=== PATIENT | female | born 1945 | race Caucasian/White ===

== ENCOUNTER 2024-06-27 11:53 | Inpatient (IN) | payer MEDICARE, OTHER ==
[~2024-06-27 11:53] MED LIST: Iopamidol 300 61% 100 ML VIAL FS ONE
[2024-06-27 12:28] LABS: #Basophils Less than 0.03 10x3/uL (0.0-0.2); #Eosinophils Less than 0.03 10x3/uL (0.0-0.5); #Neutrophils 16.84 10x3/uL (1.5-8.4); %Basophils 0.1 % (0.0-2.0); %Eosinophils 0.1 % (0.0-6.0); %Lymphocytes 7.1 % (18.0-47.0); %Monocytes 4.2 % (0.0-10.0); %Neutrophils 88.1 % (40.0-75.0); Hematocrit 30.6 % (34.9-44.5); Hemoglobin 10.1 g/dL (12.0-15.5); Mean Corpuscular Hemoglobin 28.5 pg (27.0-33.0); Mean Corpuscular Volume 86.2 fL (81.6-98.3); Platelet Count 445 10x3/uL (150-450); RBC Distribution Width 13.2 % (11.5-14.5); Red Blood Cell (RBC) Count 3.55 10x6/uL (3.90-5.03); White Blood Cell (WBC) Count 19.11 10x3/uL (3.5-10.5)
[2024-06-27 12:39] LABS: ALT (SGPT) 14 U/L (Less than 34); AST (SGOT) 25 U/L (11-34); Alkaline Phosphatase 78 U/L (40-110); Anion Gap 20 mmol/L (10-20); BUN (Urea Nitrogen) 37 mg/dL (9.8-20.1); Bilirubin, Total 0.3 mg/dL (0.3-1.2); Calc. Creatinine Clearance 0 mL/min (70-130); Carbon Dioxide 23 mmol/L (23-31); Chloride 97 mmol/L (98-107); Estimated GFR 43; Globulin 4.4 g/dL (2.4-3.5); Glucose 164 mg/dL (83-110); Potassium 3.6 mmol/L (3.5-5.1); Protein, Total 7.4 g/dL (5.8-8.1); Sodium 136 mmol/L (136-145)
[2024-06-27 12:40] LABS: Acetaminophen Less than 10 mcg/mL (Less than 10); Alcohol Less than 10.0 mg/dL (Less than 10); Lipase 56 U/L (8-78); Salicylate Less than 8.0 mg/dL (Less than 8.0)
[2024-06-27] MEDS ORDERED: Ondansetron PF 4 MG/2 ML Vial ONE (12:41)
[2024-06-27 12:43] LABS: Troponin I 0.049 ng/mL (< 0.028)
[2024-06-27 13:07] LABS: Bilirubin Neg (Negative); Blood, Urine Negative (Negative); Clarity Clear (Clear); Glucose, Urine (Dipstick) Normal (Negative); Ketone, Urine Negative (Negative); Leukocyte Negative (Negative); Nitrite Negative (Negative); Protein, Urine (Dipstick) 100 mg/dl (Neg-Trace); Urobilinogen Normal mg/dL (Less than 2)
[2024-06-27 13:09] LABS: Bacteria/HPF Rare-Few HPF (None Seen); CAUTI Indications for Culture Alt mental st,lethar; RBC/HPF None Seen HPF (0-3); Squamous Epithelial 0-3 HPF (0-3); Transitional Epithelial 0-3 HPF (None Seen); WBC/HPF 0-3 HPF (0-3)
[2024-06-27 13:10] LABS: Urine Culture Reflex No No
[2024-06-27 14:04] LABS: ALV-art Gradient 211.895 mmHg (0-20); Actual Bicarbonate (HCO3a) 25.8 mEq/L (22-28); Analyzer IN Cardio CS ER; Base Excess (BEa) 3.3 mEq/L (-2.0 to +3.0); CO2 Tension 31.7 mmHg (35.0-45.0); Carboxyhemoglobin (COHb) 0.2 gm% (0.0-3.0); Hematocrit-ABG 29 % (36.0-47.0); O2 Tension (PaO2), arterial 62.2 mmHg (> 70.0); Potassium - ABG Lab 3.08 mmol/L (3.70-5.30); Puncture Site Right Brachial art; pH, Arterial 7.528 (7.35-7.45)
[2024-06-27] MEDS ORDERED: Azithromycin 500 MG VIAL ONE (14:08)
[2024-06-27] MEDS ORDERED: cefTRIAXone (ROCEPHIN) 1 GM VIAL ONE (14:08)
[2024-06-27] MEDS ORDERED: Ondansetron PF 4 MG/2 ML Vial IVP PRN (16:48)
[2024-06-27 17:24] VITALS: BMI 21.2
[2024-06-27 18:19] LABS: Hemoglobin 9.2 g/dL (12.0-15.5)
[2024-06-27] MEDS: Sodium Chloride 0.9% 1,000 ML IV SCH (18:31)
[2024-06-27 18:45] LABS: Troponin I 0.068 ng/mL (< 0.028)
[2024-06-27] MEDS: Ampicillin/Sulbactam 3 GM in Sodium Chloride 0.9% 100 ML IVPB SCH (20:50)
[2024-06-27] MEDS: Pantoprazole 40 MG VIAL IVP SCH (20:51)
[2024-06-28 04:45] LABS: #Basophils Less than 0.03 10x3/uL (0.0-0.2); #Eosinophils 0.04 10x3/uL (0.0-0.5); #Monocytes 0.77 10x3/uL (0.0-1.1); #Neutrophils 13.19 10x3/uL (1.5-8.4); %Basophils 0.1 % (0.0-2.0); %Eosinophils 0.2 % (0.0-6.0); %Lymphocytes 13.7 % (18.0-47.0); %Monocytes 4.7 % (0.0-10.0); %Neutrophils 80.9 % (40.0-75.0); Hematocrit 25.8 % (34.9-44.5); Hemoglobin 8.3 g/dL (12.0-15.5); Mean Corpuscular HGB CONC 32.2 g/dL (32.0-36.0); Mean Corpuscular Hemoglobin 28.3 pg (27.0-33.0); Mean Corpuscular Volume 88.1 fL (81.6-98.3); Mean Platelet Volume 10.2 fL (7.4-10.4); Platelet Count 392 10x3/uL (150-450); RBC Distribution Width 13.3 % (11.5-14.5); Red Blood Cell (RBC) Count 2.93 10x6/uL (3.90-5.03); White Blood Cell (WBC) Count 16.32 10x3/uL (3.5-10.5)
[2024-06-28 05:12] LABS: Anion Gap 15 mmol/L (10-20); BUN (Urea Nitrogen) 19 mg/dL (9.8-20.1); Calc. Creatinine Clearance 36 mL/min (70-130); Calcium 8.5 mg/dL (7.8-10.44); Carbon Dioxide 25 mmol/L (23-31); Chloride 104 mmol/L (98-107); Estimated GFR 60; Glucose 95 mg/dL (83-110); Potassium 2.7 mmol/L (3.5-5.1); Sodium 141 mmol/L (136-145)
[2024-06-28 05:27] LABS: Critical Call Chem Troponin I NUR.MB21@0526; Troponin I 0.208 ng/mL (< 0.028)
[2024-06-28] MEDS ORDERED: Enoxaparin 60 MG (0.6 mL) SYRINGE SC SCH (05:45)
[2024-06-28] MEDS: Potassium Chloride 20 MEQ in Premix 1 BAG IVPB SCH (05:59)
[2024-06-28] MEDS: Aspirin 300 MG Suppository PR SCH (06:15)
[2024-06-28 06:20] LABS: Magnesium 1.8 mg/dL (1.6-2.6)
[2024-06-28 06:21] LABS: Prothrombin Time 10.8 sec (9.5-12.1)
[2024-06-28 06:25] LABS: PTT 20.6 sec (22.0-33.0)
[2024-06-28] MEDS: Aspirin Chewable 81 MG TAB PO SCH (06:41)
[2024-06-28 10:29] LABS: Hematocrit 28.3 % (34.9-44.5); Hemoglobin 8.9 g/dL (12.0-15.5)
[2024-06-28 10:40] LABS: Potassium 3.7 mmol/L (3.5-5.1)
[2024-06-28 13:07] VITALS: BMI 21.2
[2024-06-28 13:52] LABS: Hemoglobin A1c 6.1 % (4.0-6.0)
[2024-06-28] MEDS: cefTRIAXone\\ROCEPHIN 1 GM in Sodium Chloride 0.9% 100 ML IVPB SCH (14:28)
[2024-06-28] MEDS: Magnesium 2 GM/50 ML(in water) 2 GM in Premix 1 BAG IVPB SCH (14:44)
[2024-06-28 15:02] LABS: Troponin I 0.108 ng/mL (< 0.028)
[2024-06-28] MEDS: Azithromycin 500 MG in Sodium Chloride 0.9% 250 ML 250 ML IVPB SCH (15:54)
[2024-06-28 18:14] LABS: Troponin I 0.087 ng/mL (< 0.028)
[2024-06-29] MEDS: hydrALAZINE 20 MG/ML VIAL SLOW IVP PRN (04:46)
[2024-06-29 05:10] LABS: MDiff Complete? YES; Platelet Adequacy Comment Appears Adequate; RBC Morphology Within Normal Limits
[2024-06-29 05:21] LABS: #Basophils 0.04 10x3/uL (0.0-0.2); #Eosinophils 0.12 10x3/uL (0.0-0.5); #Monocytes 0.66 10x3/uL (0.0-1.1); #Neutrophils 8.69 10x3/uL (1.5-8.4); %Basophils 0.3 % (0.0-2.0); %Lymphocytes 17.4 % (18.0-47.0); %Monocytes 5.7 % (0.0-10.0); %Neutrophils 74.5 % (40.0-75.0); Hematocrit 29.3 % (34.9-44.5); Hemoglobin 9.9 g/dL (12.0-15.5); Mean Corpuscular HGB CONC 33.8 g/dL (32.0-36.0); Mean Corpuscular Hemoglobin 29.6 pg (27.0-33.0); Mean Corpuscular Volume 87.7 fL (81.6-98.3); Mean Platelet Volume 10.4 fL (7.4-10.4); Platelet Count 394 10x3/uL (150-450); RBC Distribution Width 13.3 % (11.5-14.5); Red Blood Cell (RBC) Count 3.34 10x6/uL (3.90-5.03); White Blood Cell (WBC) Count 11.67 10x3/uL (3.5-10.5)
[2024-06-29 05:42] LABS: Anion Gap 21 mmol/L (10-20); BUN (Urea Nitrogen) 14 mg/dL (9.8-20.1); Calc. Creatinine Clearance 37 mL/min (70-130); Calcium 9.7 mg/dL (7.8-10.44); Carbon Dioxide 16 mmol/L (23-31); Chloride 107 mmol/L (98-107); Estimated GFR 63; Glucose 72 mg/dL (83-110); Magnesium 2.5 mg/dL (1.6-2.6); Phosphorus 2.8 mg/dL (2.5-4.5); Potassium 4.7 mmol/L (3.5-5.1); Sodium 139 mmol/L (136-145)
[2024-06-30 05:18] LABS: #Basophils Less than 0.03 10x3/uL (0.0-0.2); #Eosinophils 0.07 10x3/uL (0.0-0.5); #Monocytes 0.66 10x3/uL (0.0-1.1); #Neutrophils 7.16 10x3/uL (1.5-8.4); %Basophils 0.2 % (0.0-2.0); %Eosinophils 0.7 % (0.0-6.0); %Monocytes 6.9 % (0.0-10.0); %Neutrophils 74.7 % (40.0-75.0); Hemoglobin 9.2 g/dL (12.0-15.5); Mean Corpuscular HGB CONC 32.9 g/dL (32.0-36.0); Mean Corpuscular Hemoglobin 28.8 pg (27.0-33.0); Mean Corpuscular Volume 87.8 fL (81.6-98.3); Mean Platelet Volume 9.8 fL (7.4-10.4); Platelet Count 524 10x3/uL (150-450); RBC Distribution Width 13.4 % (11.5-14.5); Red Blood Cell (RBC) Count 3.19 10x6/uL (3.90-5.03); White Blood Cell (WBC) Count 9.59 10x3/uL (3.5-10.5)
[2024-06-30 05:36] LABS: Anion Gap 16 mmol/L (10-20); BUN (Urea Nitrogen) 11 mg/dL (9.8-20.1); Calc. Creatinine Clearance 47 mL/min (70-130); Calcium 8.9 mg/dL (7.8-10.44); Carbon Dioxide 21 mmol/L (23-31); Chloride 104 mmol/L (98-107); Estimated GFR 83; Glucose 146 mg/dL (83-110); Potassium 2.9 mmol/L (3.5-5.1); Sodium 138 mmol/L (136-145)
[2024-06-30] MEDS ORDERED: Potassium Chloride 20 MEQ TAB PO SCH (09:00)
[2024-06-30] MEDS ORDERED: Pantoprazole 40 MG DR.TAB PO SCH (09:00)
[2024-06-30] MEDS: Potassium Bicarbonate/Cit Ac 20 MEQ TAB PO SCH ×2 (09:21→13:48)
[2024-06-30] MEDS: LevoFLOXacin 750 MG TAB PO SCH (09:24)
[2024-06-30] MEDS: Amlodipine 10 MG TAB PO SCH (09:24)
[2024-06-30] MEDS: Lansoprazole 3 MG/ML ORAL SUSPENSION PO SCH (09:46)
[2024-06-30 11:42] VITALS: BP 171/67; TEMP 97.8
[2024-06-30 13:46] LABS: Anion Gap 15 mmol/L (10-20); BUN (Urea Nitrogen) 11 mg/dL (9.8-20.1); Calc. Creatinine Clearance 43 mL/min (70-130); Carbon Dioxide 22 mmol/L (23-31); Chloride 103 mmol/L (98-107); Estimated GFR 74; Glucose 188 mg/dL (83-110); Potassium 3.4 mmol/L (3.5-5.1); Sodium 137 mmol/L (136-145)
[2024-07-01] MEDS ORDERED: LevoFLOXacin 750 MG TAB PO SCH (06:00)
[2024-07-01] MEDS ORDERED: Lansoprazole 3 MG/ML ORAL SUSPENSION PO SCH (09:00)
== END 2024-06-30 16:26 | DRG 871 ==
LOC: CSHERS 11:53 → CSHERHOLD 14:31 → CSHTELE 17:22
PROVIDERS: ADMIT Internal Medicine; ATTEND Family Medicine
PROC: 4A133R1 Monitoring of Arterial Saturation, Peripheral, Percutaneous Approach (ICD-10-PCS; principal; 2024-06-27)
PROC: 3E03329 Introduction of Other Anti-infective into Peripheral Vein, Percutaneous Approach (ICD-10-PCS; 2024-06-27)
DX: A41.9 Sepsis, unspecified organism (principal); J69.0 Pneumonitis due to inhalation of food and vomit; J96.01 Acute respiratory failure with hypoxia; N17.9 Acute kidney failure, unspecified; I24.89 Other forms of acute ischemic heart disease; I10 Essential (primary) hypertension; F03.C0 Unspecified dementia, severe, without behavioral disturbance, psychotic disturbance, mood disturbance, and anxiety; K21.9 Gastro-esophageal reflux disease without esophagitis; K44.9 Diaphragmatic hernia without obstruction or gangrene
CPT/HCPCS: 36415; 36416; 36600; 71045; 71260; 74177; 80048; 80053; 80307; 81001; 82805; 83036; 83605; 83690; 83735; 84100; 84443; 84484; 85025; 85610; 85730; 93005; 93010; 93306; 94760; 96374; 96375; J0295; J0360; J0456; J0696; J2405; J2470; J3475; J3480; J7030; J7050; Q9967